=== PATIENT | female | born 1990 | race American Indian/Alaskan Native ===

== ENCOUNTER 2020-11-16 10:08 | Outpatient (CLI) | payer OTHER ==
--- NOTE | 2020-11-16 11:36 | XRay Report ---
LUMBOSACRAL SPINE 3 VIEWS INDICATION: LEFT/RIGHT HIP PAIN. COMPARISON: None. IMPRESSION: Normal alignment. No significant discogenic DJD or facet arthropathy. No acute osseous or soft tissue abnormality. BILATERAL HIPS WITH PELVIS 3 VIEWS INDICATION: LEFT/RIGHT HIP PAIN. COMPARISON: None. IMPRESSION: No acute osseous or soft tissue abnormality. No significant DJD. Signer Name: Curtis Mejia Jr, MD Signed: 11/16/2020 11:32 AM Workstation Name: [id number]
--- NOTE | 2020-11-16 11:40 | XRay Report ---
BILATERAL SHOULDERS 3 VIEWS INDICATION: LEFT/RIGHT SHOULDER PAIN. COMPARISON: None. IMPRESSION: No acute osseous or soft tissue abnormality. No significant DJD. Signer Name: Curtis Mejia Jr, MD Signed: 11/16/2020 11:35 AM Workstation Name: [id number]
== END 2020-11-16 10:09 | disposition home or self-care (01) ==
LOC: XRAY 10:08
PROVIDERS: ATTEND Internal Medicine
DX: M25.511 Pain in right shoulder (principal); M25.512 Pain in left shoulder; M25.551 Pain in right hip; M25.552 Pain in left hip
CPT/HCPCS: 72100; 73521